=== PATIENT | male | born 1960 | race Caucasian/White ===

== ENCOUNTER 2022-08-14 16:08 | Observation (INO) ==
[2022-08-14] MEDS ORDERED: SODIUM CHLORIDE 0.9% 1,000 ML IV STA (16:29)
[2022-08-14] MEDS ORDERED: ONDANSETRON 4 MG/2 ML VIAL IV STA (16:29)
[2022-08-14] MEDS ORDERED: MAGNESIUM CITRATE 300 ML BOTTLE PO STA (16:32)
[2022-08-14] MEDS ORDERED: LACTULOSE 20 GM/30 ML UDCUP PO STA (16:33)
[2022-08-14 17:01] LABS: Basophils # 0.1 10*3/uL (0.0-0.2); Basophils % 0.4 % (0.0-0.8); Eosinophils # 0.1 10*3/uL (0.0-0.87); Eosinophils % 0.4 % (0.00-10.9); Hematocrit 36.2 VOL% (42.0-52.0); Hemoglobin 12.2 GM/DL (14.0-18.0); Immature Granulocytes % 0.4 %; Immature Granulocytes Absolute 0.08 #; Lymphocytes # 2.3 10*3/uL (1.4-4.0); Lymphocytes % 12.8 % (21.2-54.2); Mean Corpuscular HGB Conc 33.7 GM/DL (32-36); Monocytes # 1.7 10*3/uL (0.11-0.8); Monocytes % 9.5 % (1.7-12.7); Neutrophils % 76.5 % (38.7-73.9); Platelet Count 224 T/CUMM (130-400); Red Blood Count 4.02 MC/CUMM (3.8-5.5); Red Cell Distribution Width 13.5 % (9.3-17.3); White Blood Count 17.9 T/CUMM (4-12)
[2022-08-14 17:12] LABS: Calcium 9.7 MG/DL (8.5-10.1); Osmolality,Calculated 272.5 MOS/KG (273-304); Potassium 3.8 MMOL/L (3.5-5.1)
[2022-08-14] MEDS ORDERED: GLUCAGON 1 MG VIAL IM PRN (18:31)
[2022-08-14] MEDS ORDERED: ACETAMINOPHEN 325 MG TABLET PO PRN (18:31)
[2022-08-14] MEDS ORDERED: DEXTROSE 10% 250 ML BAG IV PRN (18:31)
[2022-08-14] MEDS ORDERED: ONDANSETRON 4 MG/2 ML VIAL IV PRN (18:31)
[2022-08-14] MEDS ORDERED: LACTATED RINGERS 1,000 ML IV ONE (18:37)
[2022-08-14] MEDS ORDERED: MAGNESIUM SULF RIDER 2 GM/50 ML PREMIX IV STA (19:23)
[2022-08-14 19:43] LABS: Bilirubin,Urine Negative (Negative); Blood, Urine Negative (Negative); Glucose,Urine (UA) Negative (Negative); Ketones,Urine Negative (Negative); Mucus,Urine Occasional /LPF (Occasional); Nitrite,Urine Negative (Negative); Protein,Urine Negative (Negative); Urine Appearance Clear (Clear); Urine Color Yellow (Yellow); Urine Urobilinogen 0.2 eU/dL (<2.0); Urine pH 5.5 (4.5-8.0)
[2022-08-14] MEDS ORDERED: cefTRIAXone 1,000 MG in SODIUM CHLORIDE 0.9% 100 ML IV SCH (20:00)
[2022-08-14] MEDS ORDERED: ENOXAPARIN 40 MG/0.4 ML SYRINGE SUBCUT SCH (21:00)
[2022-08-14] MEDS: LACTATED RINGERS 1,000 ML IV SCH (21:02)
[2022-08-15 05:13] LABS: Basophils # 0.1 10*3/uL (0.0-0.2); Basophils % 0.4 % (0.0-0.8); Eosinophils # 0.2 10*3/uL (0.0-0.87); Hematocrit 34.6 VOL% (42.0-52.0); Hemoglobin 11.3 GM/DL (14.0-18.0); Immature Granulocytes % 0.5 %; Immature Granulocytes Absolute 0.07 #; Lymphocytes # 2.1 10*3/uL (1.4-4.0); Lymphocytes % 14.6 % (21.2-54.2); Mean Corpuscular HGB Conc 32.7 GM/DL (32-36); Mean Corpuscular Volume 95.6 FL (87-102); Mean Platelet Volume 11.8 FL (9.6-12.0); Monocytes # 1.1 10*3/uL (0.11-0.8); Monocytes % 7.5 % (1.7-12.7); Platelet Count 146 T/CUMM (130-400); Red Blood Count 3.62 MC/CUMM (3.8-5.5); Red Cell Distribution Width 14.1 % (9.3-17.3); White Blood Count 14.5 T/CUMM (4-12)
[2022-08-15] MEDS: LACTATED RINGERS 1,000 ML IV SCH ×2 (05:48→13:01)
[2022-08-15] MEDS ORDERED: ASPIRIN 325 MG TABLET PO SCH (09:00)
[2022-08-15] MEDS ORDERED: PANTOPRAZOLE 40 MG TABLET PO SCH (09:00)
[2022-08-15 12:13] VITALS: BP 111/59
== END 2022-08-15 13:13 | disposition home or self-care (01) ==
LOC: N.ED 16:08 → INTOOBSV 18:31 → N.EDINP 18:31 → N.3E 19:38
PROVIDERS: ADMIT Family Medicine; ATTEND Family Medicine

== ENCOUNTER 2022-09-18 11:42 | Inpatient (IN) ==
[2022-09-18] MEDS ORDERED: SODIUM CHLORIDE 0.9% 1,000 ML IV STA (11:59)
[2022-09-18] MEDS ORDERED: ONDANSETRON 4 MG/2 ML VIAL IV STA (12:00)
[2022-09-18] MEDS ORDERED: methylPREDNISolone SOD SUC 125 MG/2 ML VIAL IV STA (12:00)
[2022-09-18] MEDS ORDERED: HYDROmorphone 1 MG/1 ML SYRINGE IV STA (12:00)
[2022-09-18 12:37] LABS: Basophils % 0.7 % (0.0-0.8); Eosinophils % 0.5 % (0.00-10.9); Hematocrit 32.4 VOL% (42.0-52.0); Hemoglobin 10.9 GM/DL (14.0-18.0); Immature Granulocytes % 3.2 %; Immature Granulocytes Absolute 0.14 #; Lymphocytes # 0.7 10*3/uL (1.4-4.0); Lymphocytes % 15.6 % (21.2-54.2); Mean Corpuscular HGB Conc 33.6 GM/DL (32-36); Mean Platelet Volume 8.7 FL (9.6-12.0); Monocytes # 0.4 10*3/uL (0.11-0.8); Monocytes % 9.5 % (1.7-12.7); Neutrophils % 70.5 % (38.7-73.9); Platelet Count 232 T/CUMM (130-400); Red Blood Count 3.56 MC/CUMM (3.8-5.5); Red Cell Distribution Width 15.3 % (9.3-17.3); White Blood Count 4.4 T/CUMM (4-12)
[2022-09-18] MEDS ORDERED: SODIUM CHLORIDE 0.9% 2,150 ML IV ONE (12:44)
[2022-09-18 12:59] LABS: Bilirubin,Total 0.5 MG/DL (0.20-1.00); Calcium 9.2 MG/DL (8.5-10.1); Osmolality,Calculated 257.9 MOS/KG (273-304); Total Protein 6.8 G/DL (6.4-8.2)
[2022-09-18 13:18] LABS: Albumin 3.1 G/DL (3.4-5.0); Bilirubin,Total 0.5 MG/DL (0.20-1.00); Calcium 8.9 MG/DL (8.5-10.1); Osmolality,Calculated 261.7 MOS/KG (273-304); Potassium 4.3 MMOL/L (3.5-5.1); Total Protein 6.1 G/DL (6.4-8.2)
[2022-09-18] MEDS: PIPERACILLIN/TAZOBACTAM 3,375 MG in SODIUM CHLORIDE 0.9% 100 ML IV SCH ×2 (13:30→20:39)
[2022-09-18] MEDS ORDERED: PROMETHAZINE 25 MG TABLET PO PRN (13:31)
[2022-09-18] MEDS ORDERED: DEXAMETHASONE 10 MG/1 ML VIAL IV ONE (15:00)
[2022-09-18] MEDS ORDERED: ACETAMINOPHEN 325 MG TABLET PO PRN (15:19)
[2022-09-18] MEDS ORDERED: HYDROmorphone 1 MG/1 ML SYRINGE IV PRN (15:19)
[2022-09-18] MEDS ORDERED: ONDANSETRON 4 MG/2 ML VIAL IV PRN (15:19)
[2022-09-18] MEDS: DEXAMETHASONE 4 MG/1 ML VIAL IV SCH (17:46)
[2022-09-18] MEDS: SODIUM CHLORIDE 0.9% 1,000 ML IV SCH ×2 (17:48→23:48)
[2022-09-18 18:49] LABS: Bilirubin,Urine Negative (Negative); Blood, Urine Negative (Negative); Glucose,Urine (UA) 100 mg/dL (Negative); Ketones,Urine Negative (Negative); Nitrite,Urine Negative (Negative); Protein,Urine Negative (Negative); Urine Appearance Clear (Clear); Urine Color Yellow (Yellow); Urine Specific Gravity <= 1.005 (1.001-1.035); Urine Urobilinogen 0.2 eU/dL (<2.0)
[2022-09-18 18:50] LABS: RBC,Urine <1 /HPF (0-4)
[2022-09-18] MEDS: DOCUSATE SODIUM 100 MG CAPSULE PO SCH (20:38)
[2022-09-18] MEDS: MEMANTINE 5 MG TABLET PO SCH (20:38)
[2022-09-19 04:40] LABS: Basophils % 0.3 % (0.0-0.8); Hematocrit 28.9 VOL% (42.0-52.0); Hemoglobin 9.5 GM/DL (14.0-18.0); Immature Granulocytes % 3.2 %; Immature Granulocytes Absolute 0.12 #; Lymphocytes # 0.4 10*3/uL (1.4-4.0); Lymphocytes % 10.1 % (21.2-54.2); Mean Corpuscular HGB Conc 32.9 GM/DL (32-36); Mean Corpuscular Volume 92.9 FL (87-102); Mean Platelet Volume 9.4 FL (9.6-12.0); Monocytes # 0.1 10*3/uL (0.11-0.8); Monocytes % 3.5 % (1.7-12.7); Neutrophils % 82.9 % (38.7-73.9); Platelet Count 279 T/CUMM (130-400); Red Blood Count 3.11 MC/CUMM (3.8-5.5); Red Cell Distribution Width 15.5 % (9.3-17.3); White Blood Count 3.8 T/CUMM (4-12)
[2022-09-19] MEDS: DEXAMETHASONE 4 MG/1 ML VIAL IV SCH ×3 (04:45→20:58)
[2022-09-19] MEDS: PIPERACILLIN/TAZOBACTAM 3,375 MG in SODIUM CHLORIDE 0.9% 100 ML IV SCH ×3 (04:47→20:58)
[2022-09-19 05:07] LABS: Albumin 2.9 G/DL (3.4-5.0); Bilirubin,Total 0.4 MG/DL (0.20-1.00); Calcium 9.1 MG/DL (8.5-10.1); Free T4 (Free Thyroxine) 0.57 NG/DL (0.76-1.46); Potassium 4.1 MMOL/L (3.5-5.1); Thyroid Stimulating Hormone 0.697 uIU/ml (0.358-3.74); Total Protein 6.6 G/DL (6.4-8.2)
[2022-09-19] MEDS ORDERED: GLUCAGON 1 MG VIAL IM PRN (05:11)
[2022-09-19] MEDS ORDERED: DEXTROSE 10% 250 ML BAG IV PRN (05:11)
[2022-09-19] MEDS: INSULIN LISPRO 100 UNIT/ML SUBCUT SCH ×5 (05:49→20:59)
[2022-09-19] MEDS ORDERED: NON-FORMULARY MEDICATION (Selenium 50 mcg Tablet) PO SCH (09:00)
[2022-09-19] MEDS: SODIUM CHLORIDE 0.9% 1,000 ML IV SCH ×2 (10:38→20:08)
[2022-09-19] MEDS: PANTOPRAZOLE 40 MG TABLET PO SCH (11:15)
[2022-09-19] MEDS: MEMANTINE 5 MG TABLET PO SCH ×2 (11:16→20:58)
[2022-09-19] MEDS: LORazepam 1 MG TABLET PO SCH (11:16)
[2022-09-19] MEDS: FOLIC ACID 1 MG TABLET PO SCH (11:16)
[2022-09-19] MEDS: TAMSULOSIN 0.4 MG CAPSULE PO SCH (11:16)
[2022-09-19] MEDS: DOCUSATE SODIUM 100 MG CAPSULE PO SCH ×2 (11:16→20:58)
[2022-09-20] MEDS: SODIUM CHLORIDE 0.9% 1,000 ML IV SCH ×2 (00:32→02:36)
[2022-09-20] MEDS: INSULIN LISPRO 100 UNIT/ML SUBCUT SCH ×3 (02:04→10:15)
[2022-09-20] MEDS: PIPERACILLIN/TAZOBACTAM 3,375 MG in SODIUM CHLORIDE 0.9% 100 ML IV SCH (05:32)
[2022-09-20] MEDS: DEXAMETHASONE 4 MG/1 ML VIAL IV SCH (06:15)
[2022-09-20] MEDS ORDERED: LEVOTHYROXINE 50 MCG TABLET PO SCH (06:30)
[2022-09-20] MEDS: DOCUSATE SODIUM 100 MG CAPSULE PO SCH (08:49)
[2022-09-20] MEDS: LORazepam 1 MG TABLET PO SCH (08:49)
[2022-09-20] MEDS: FOLIC ACID 1 MG TABLET PO SCH (08:50)
[2022-09-20] MEDS: MEMANTINE 5 MG TABLET PO SCH (08:50)
[2022-09-20] MEDS: PANTOPRAZOLE 40 MG TABLET PO SCH (08:50)
[2022-09-20] MEDS: TAMSULOSIN 0.4 MG CAPSULE PO SCH (08:50)
[2022-09-20 09:01] VITALS: BP 124/71
== END 2022-09-20 10:25 | disposition home or self-care (01) | DRG 640 ==
LOC: N.ED 11:42 → N.TELES 13:40
PROVIDERS: ADMIT Family Medicine; ATTEND Family Medicine